=== PATIENT | male | born 1965 | race Two or more races ===

== ENCOUNTER → 2020-01-24 | Emergency (ER) | payer OTHER ==
[~2020-01-24] VITALS: Ht 182.9 cm; Wt 140.6 kg
[~2020-01-24] MED LIST: CARVEDILOL25 MG; ELIQUIS5 M1; LASIX40 MG; PREDNISONE20 M1 PO; ULTRACET PO
== END | disposition home or self-care (01) ==
LOC: ER 05:42
DX: M79.642 Pain in left hand (principal); M79.641 Pain in right hand